=== PATIENT | male | born 1985 | race African-American/Black ===

== ENCOUNTER 2020-02-09 02:24 | Emergency (ER) | payer MEDICAID ==
[2020-02-09] MEDS ORDERED: Sodium Chloride 0.9% 2.5 ML Syringe FLUSH PRN (02:49)
[2020-02-09] MEDS ORDERED: Lactated Ringers 1,000 ML IV ONE (02:49)
[2020-02-09] MEDS ORDERED: Albuterol/Ipratropium 3.0-0.5 MG/3 ML Neb Soln NEB ONE (02:49)
[2020-02-09] MEDS ORDERED: Sodium Chloride 0.9% 10 ML Syringe FLUSH PRN (02:49)
--- NOTE | 2020-02-09 03:02 | EDM.PDOC ---
ED HPI GENERAL MEDICAL PROBLEM - General Chief Complaint: Respiratory Problem Stated Complaint: SHORTNESS OF BREATH Time Seen by Provider: 02/09/20 02:52 Source of Information: Reports: Patient History Limitations: Reports: No Limitations - History of Present Illness INITIAL COMMENTS - FREE TEXT/NARRATIVE: 34-year-old male presents with worsening dyspnea over the past 5 months. He admits to dyspnea on exertion, intermittent vomiting with left upper quadrant pain that waxes and wanes over the past 5 months. He denies fever, chills, chest pain. He is not anuric. He admits to snorting lines of cocaine 4 days ago. ROS: A 10-point review of systems, other than pertinent positives and negatives as stated per HPI, is otherwise negative Past medical history: No additional pertinent history Past Surgical history: No additional pertinent history Social history: No additional pertinent history Family history: No additional pertinent history PHYSICAL EXAM General: AOx4, GCS = 15, mild distress, BMI 35 HEENT: dry mucous membrane Neck: supple, no meningismus, no Kernig or Brudzinski Cardiac: S1S2 tachycardia Respiratory: CTAB, no crackles or rales, no wheezing, mild respiratory distress Abdomen: Soft, nontender, no rebound or guarding, nondistended, no pulsatile mass. Back: nontender Musculoskeletal: NVI distally, no deformity Neuro: No focal deficits Abdomen Pain Score (Numeric/FACES): 6 - Related Data Allergies Allergy/AdvReac Type Severity Reaction Status Date / Time No Known Allergies Allergy Verified 02/09/20 02:42 Home Meds: Home Meds . [No Known Home Meds] 02/09/20 [History] Past Medical History - Past Health History Medical/Surgical History: Denies Medical/Surgical History - Infectious Disease History Infectious Disease History: Reports: None Social & Family History - Family History Family Medical History: No Pertinent Family History - Tobacco Use Tobacco Use Status *Q: Never Tobacco User - Caffeine Use Caffeine Use: Reports: None - Recreational Drug Use Recreational Drug Use: Yes Drug Use in Last 12 Months: Yes Recreational Drug Type: Reports: Marijuana/Hashish Recreational Drug Use Frequency: Weekly ED ROS GENERAL - Review of Systems Review Of Systems: See Below (see dictation) ED EXAM, GENERAL - Physical Exam Exam: See Below (see dictation) #1 Interpretation EKG Interpretation Comments: Heart rate = 106 bpm, sinus tachycardia, normal QRS interval, LVH, no STEMI. EKG and rhythm strip interpreted by me at 0258 Course - Vital Signs Last Recorded V/S: Last Vital Signs Temp 96.3 F L 02/09/20 02:42 Pulse 102 H 02/09/20 06:15 Resp 19 02/09/20 06:15 BP 192/138 H 02/09/20 06:15 Pulse Ox 98 02/09/20 06:15 - Orders/Labs/Meds Orders: Active Orders 24 hr Category Date Time Status PROCALCITONIN [REF] Stat Lab 02/09/20 02:55 Received Nitroglycerin [Nitrostat] Med 02/09/20 05:59 Active 0.4 mg SL Q5M PRN Nitroglycerin/D5W [Nitroglycerin 25 MG/D5W 250 ML] Med 02/09/20 05:45 Active 25 mg in 250 ml IV TITRATE Isolation [COMM] Stat Oth 02/09/20 02:51 Active Saline Lock Insert [OM.PC] Stat Oth 02/09/20 02:49 Ordered Medication Orders Nitroglycerin/Dextrose (Nitroglycerin 25 Mg/D5w 250 Ml) 25 mg in 250 mls @ 6 mls/hr IV TITRATE JACKIE; Protocol Last Admin: 02/09/20 06:07 Dose: 10 mcg/min, 6 mls/hr Documented by: KEN Nitroglycerin (Nitrostat) 0.4 mg SL Q5M PRN PRN Reason: Chest Pain Last Admin: 02/09/20 06:03 Dose: 0.4 mg Documented by: Admin: 02/09/20 06:02 Dose: 0.4 mg Documented by: KEN Labs: Laboratory Tests 02/09/20 02/09/20 02/09/20 Range/Units 02:55 02:55 02:55 WBC 13.19 H (4.0-11.0) K/uL RBC 4.58 (4.50-5.90) M/uL Hgb 13.6 (13.0-17.0) g/dL Hct 39.8 (38.0-50.0) % MCV 86.9 (80.0-98.0) fL MCH 29.7 (27.0-32.0) pg MCHC 34.2 (31.0-37.0) g/dL RDW Std Deviation 39.8 (28.0-62.0) fl RDW Coeff of Neema 13 (11.0-15.0) % Plt Count 355 (150-400) K/uL MPV 10.30 (7.40-12.00) fL Neut % (Auto) 67.6 (48.0-80.0) % Lymph % (Auto) 22.1 (16.0-40.0) % Quay % (Auto) 8.7 (0.0-15.0) % Eos % (Auto) 1.3 (0.0-7.0) % Baso % (Auto) 0.3 (0.0-1.5) % Neut # (Auto) 8.9 H (1.4-5.7) K/uL Lymph # (Auto) 2.9 H (0.6-2.4) K/uL Quay # (Auto) 1.2 H (0.0-0.8) K/uL Eos # (Auto) 0.2 (0.0-0.7) K/uL Baso # (Auto) 0.0 (0.0-0.1) K/uL Nucleated RBC % 0.0 /100WBC Nucleated RBCs # 0 K/uL INR APTT (18.6-31.3) SEC D-Dimer, Quantitative 1.00 H (0.0-0.50) mg/L FEU Lactate 1.0 (0.20-2.00) mmol/L Sodium (136-148) mmol/L Potassium (3.5-5.1) mmol/L Chloride (98-107) mmol/L Carbon Dioxide (21.0-32.0) mmol/L BUN (7.0-18.0) mg/dL Creatinine (0.8-1.3) mg/dL Est Cr Clr Drug Dosing mL/min Estimated GFR (MDRD) ml/min Glucose (74-106) mg/dL Calcium (8.5-10.1) mg/dL Magnesium (1.8-2.4) mg/dL Ferritin (26-388) ng/mL Total Bilirubin (0.2-1.0) mg/dL AST (15-37) IU/L ALT (14-63) IU/L Alkaline Phosphatase (46-116) U/L Lactate Dehydrogenase (81-234) U/L Troponin I (0.000-0.056) ng/mL C-Reactive Protein (0.00-0.90) mg/dL B-Natriuretic Peptide (<100) PG/ML Total Protein (6.4-8.2) g/dL Albumin (3.4-5.0) g/dL Globulin (2.6-4.0) g/dL Albumin/Globulin Ratio (0.9-1.6) Lipase (73-393) U/L Urine Color Urine Appearance Urine pH (5.0-8.0) Ur Specific [place] (1.001-1.035) Urine Protein (NEGATIVE) mg/dL Urine Glucose (UA) (NEGATIVE) mg/dL Urine Ketones (NEGATIVE) mg/dL Urine Occult Blood (NEGATIVE) Urine Nitrite (NEGATIVE) Urine Bilirubin (NEGATIVE) Urine Urobilinogen (<2.0) EU/dL Ur Leukocyte Esterase (NEGATIVE) Urine RBC (0-2/HPF) Urine WBC (0-5/HPF) Ur Epithelial Cells (NONE-FEW) Urine Bacteria (NEGATIVE) Urine Opiates Screen (NEGATIVE) Ur Oxycodone Screen (NEGATIVE) Urine Methadone Screen (NEGATIVE) Ur Barbiturates Screen (NEGATIVE) Ur Phencyclidine Scrn (NEGATIVE) Ur Amphetamine Screen (NEGATIVE) U Methamphetamines Scrn (NEGATIVE) U Benzodiazepines Scrn (NEGATIVE) U Cocaine Metab Screen (NEGATIVE) U Marijuana (THC) Screen (NEGATIVE) SARS-CoV-2 RNA (BEENA) (NEGATIVE) 02/09/20 02/09/20 02/09/20 Range/Units 02:55 02:55 02:55 WBC (4.0-11.0) K/uL RBC (4.50-5.90) M/uL Hgb (13.0-17.0) g/dL Hct (38.0-50.0) % MCV (80.0-98.0) fL MCH (27.0-32.0) pg MCHC (31.0-37.0) g/dL RDW Std Deviation (28.0-62.0) fl RDW Coeff of Neema (11.0-15.0) % Plt Count (150-400) K/uL MPV (7.40-12.00) fL Neut % (Auto) (48.0-80.0) % Lymph % (Auto) (16.0-40.0) % Quay % (Auto) (0.0-15.0) % Eos % (Auto) (0.0-7.0) % Baso % (Auto) (0.0-1.5) % Neut # (Auto) (1.4-5.7) K/uL Lymph # (Auto) (0.6-2.4) K/uL Quay # (Auto) (0.0-0.8) K/uL Eos # (Auto) (0.0-0.7) K/uL Baso # (Auto) (0.0-0.1) K/uL Nucleated RBC % /100WBC Nucleated RBCs # K/uL INR 1.05 APTT (18.6-31.3) SEC D-Dimer, Quantitative (0.0-0.50) mg/L FEU Lactate (0.20-2.00) mmol/L Sodium 135 L (136-148) mmol/L Potassium 3.0 L (3.5-5.1) mmol/L Chloride 94 L (98-107) mmol/L Carbon Dioxide 28.1 (21.0-32.0) mmol/L BUN 33 H (7.0-18.0) mg/dL Creatinine 4.5 H (0.8-1.3) mg/dL Est Cr Clr Drug Dosing 23.66 mL/min Estimated GFR (MDRD) 18.2 ml/min Glucose 133 H (74-106) mg/dL Calcium 9.2 (8.5-10.1) mg/dL Magnesium 2.2 (1.8-2.4) mg/dL Ferritin (26-388) ng/mL Total Bilirubin 0.6 (0.2-1.0) mg/dL AST 61 H (15-37) IU/L ALT 90 H (14-63) IU/L Alkaline Phosphatase 84 (46-116) U/L Lactate Dehydrogenase 352 H (81-234) U/L Troponin I 0.116 H* (0.000-0.056) ng/mL C-Reactive Protein 2.40 H (0.00-0.90) mg/dL B-Natriuretic Peptide 2701 H (<100) PG/ML Total Protein 7.6 (6.4-8.2) g/dL Albumin 3.4 (3.4-5.0) g/dL Globulin 4.2 H (2.6-4.0) g/dL Albumin/Globulin Ratio 0.8 L (0.9-1.6) Lipase (73-393) U/L Urine Color Urine Appearance Urine pH (5.0-8.0) Ur Specific [place] (1.001-1.035) Urine Protein (NEGATIVE) mg/dL Urine Glucose (UA) (NEGATIVE) mg/dL Urine Ketones (NEGATIVE) mg/dL Urine Occult Blood (NEGATIVE) Urine Nitrite (NEGATIVE) Urine Bilirubin (NEGATIVE) Urine Urobilinogen (<2.0) EU/dL Ur Leukocyte Esterase (NEGATIVE) Urine RBC (0-2/HPF) Urine WBC (0-5/HPF) Ur Epithelial Cells (NONE-FEW) Urine Bacteria (NEGATIVE) Urine Opiates Screen (NEGATIVE) Ur Oxycodone Screen (NEGATIVE) Urine Methadone Screen (NEGATIVE) Ur Barbiturates Screen (NEGATIVE) Ur Phencyclidine Scrn (NEGATIVE) Ur Amphetamine Screen (NEGATIVE) U Methamphetamines Scrn (NEGATIVE) U Benzodiazepines Scrn (NEGATIVE) U Cocaine Metab Screen (NEGATIVE) U Marijuana (THC) Screen (NEGATIVE) SARS-CoV-2 RNA (BEENA) (NEGATIVE) 02/09/20 02/09/20 02/09/20 Range/Units 02:55 02:55 02:55 WBC (4.0-11.0) K/uL RBC (4.50-5.90) M/uL Hgb (13.0-17.0) g/dL Hct (38.0-50.0) % MCV (80.0-98.0) fL MCH (27.0-32.0) pg MCHC (31.0-37.0) g/dL RDW Std Deviation (28.0-62.0) fl RDW Coeff of Neema (11.0-15.0) % Plt Count (150-400) K/uL MPV (7.40-12.00) fL Neut % (Auto) (48.0-80.0) % Lymph % (Auto) (16.0-40.0) % Quay % (Auto) (0.0-15.0) % Eos % (Auto) (0.0-7.0) % Baso % (Auto) (0.0-1.5) % Neut # (Auto) (1.4-5.7) K/uL Lymph # (Auto) (0.6-2.4) K/uL Quay # (Auto) (0.0-0.8) K/uL Eos # (Auto) (0.0-0.7) K/uL Baso # (Auto) (0.0-0.1) K/uL Nucleated RBC % /100WBC Nucleated RBCs # K/uL INR APTT 29.6 (18.6-31.3) SEC D-Dimer, Quantitative (0.0-0.50) mg/L FEU Lactate (0.20-2.00) mmol/L Sodium (136-148) mmol/L Potassium (3.5-5.1) mmol/L Chloride (98-107) mmol/L Carbon Dioxide (21.0-32.0) mmol/L BUN (7.0-18.0) mg/dL Creatinine (0.8-1.3) mg/dL Est Cr Clr Drug Dosing mL/min Estimated GFR (MDRD) ml/min Glucose (74-106) mg/dL Calcium (8.5-10.1) mg/dL Magnesium (1.8-2.4) mg/dL Ferritin 555 H (26-388) ng/mL Total Bilirubin (0.2-1.0) mg/dL AST (15-37) IU/L ALT (14-63) IU/L Alkaline Phosphatase (46-116) U/L Lactate Dehydrogenase (81-234) U/L Troponin I (0.000-0.056) ng/mL C-Reactive Protein (0.00-0.90) mg/dL B-Natriuretic Peptide (<100) PG/ML Total Protein (6.4-8.2) g/dL Albumin (3.4-5.0) g/dL Globulin (2.6-4.0) g/dL Albumin/Globulin Ratio (0.9-1.6) Lipase 114 (73-393) U/L Urine Color Urine Appearance Urine pH (5.0-8.0) Ur Specific [place] (1.001-1.035) Urine Protein (NEGATIVE) mg/dL Urine Glucose (UA) (NEGATIVE) mg/dL Urine Ketones (NEGATIVE) mg/dL Urine Occult Blood (NEGATIVE) Urine Nitrite (NEGATIVE) Urine Bilirubin (NEGATIVE) Urine Urobilinogen (<2.0) EU/dL Ur Leukocyte Esterase (NEGATIVE) Urine RBC (0-2/HPF) Urine WBC (0-5/HPF) Ur Epithelial Cells (NONE-FEW) Urine Bacteria (NEGATIVE) Urine Opiates Screen (NEGATIVE) Ur Oxycodone Screen (NEGATIVE) Urine Methadone Screen (NEGATIVE) Ur Barbiturates Screen (NEGATIVE) Ur Phencyclidine Scrn (NEGATIVE) Ur Amphetamine Screen (NEGATIVE) U Methamphetamines Scrn (NEGATIVE) U Benzodiazepines Scrn (NEGATIVE) U Cocaine Metab Screen (NEGATIVE) U Marijuana (THC) Screen (NEGATIVE) SARS-CoV-2 RNA (BEENA) (NEGATIVE) 02/09/20 02/09/20 02/09/20 Range/Units 03:17 03:34 03:34 WBC (4.0-11.0) K/uL RBC (4.50-5.90) M/uL Hgb (13.0-17.0) g/dL Hct (38.0-50.0) % MCV (80.0-98.0) fL MCH (27.0-32.0) pg MCHC (31.0-37.0) g/dL RDW Std Deviation (28.0-62.0) fl RDW Coeff of Neema (11.0-15.0) % Plt Count (150-400) K/uL MPV (7.40-12.00) fL Neut % (Auto) (48.0-80.0) % Lymph % (Auto) (16.0-40.0) % Quay % (Auto) (0.0-15.0) % Eos % (Auto) (0.0-7.0) % Baso % (Auto) (0.0-1.5) % Neut # (Auto) (1.4-5.7) K/uL Lymph # (Auto) (0.6-2.4) K/uL [place] # (Auto) (0.0-0.8) K/uL Eos # (Auto) (0.0-0.7) K/uL Baso # (Auto) (0.0-0.1) K/uL Nucleated RBC % /100WBC Nucleated RBCs # K/uL INR APTT (18.6-31.3) SEC D-Dimer, Quantitative (0.0-0.50) mg/L FEU Lactate (0.20-2.00) mmol/L Sodium (136-148) mmol/L Potassium (3.5-5.1) mmol/L Chloride (98-107) mmol/L Carbon Dioxide (21.0-32.0) mmol/L BUN (7.0-18.0) mg/dL Creatinine (0.8-1.3) mg/dL Est Cr Clr Drug Dosing mL/min Estimated GFR (MDRD) ml/min Glucose (74-106) mg/dL Calcium (8.5-10.1) mg/dL Magnesium (1.8-2.4) mg/dL Ferritin (26-388) ng/mL Total Bilirubin (0.2-1.0) mg/dL AST (15-37) IU/L ALT (14-63) IU/L Alkaline Phosphatase (46-116) U/L Lactate Dehydrogenase (81-234) U/L Troponin I (0.000-0.056) ng/mL C-Reactive Protein (0.00-0.90) mg/dL B-Natriuretic Peptide (<100) PG/ML Total Protein (6.4-8.2) g/dL Albumin (3.4-5.0) g/dL Globulin (2.6-4.0) g/dL Albumin/Globulin Ratio (0.9-1.6) Lipase (73-393) U/L Urine Color YELLOW Urine Appearance CLEAR Urine pH 6.5 (5.0-8.0) Ur Specific [place] 1.010 (1.001-1.035) Urine Protein 100 H (NEGATIVE) mg/dL Urine Glucose (UA) NEGATIVE (NEGATIVE) mg/dL Urine Ketones NEGATIVE (NEGATIVE) mg/dL Urine Occult Blood TRACE-INTACT H (NEGATIVE) Urine Nitrite POSITIVE H (NEGATIVE) Urine Bilirubin NEGATIVE (NEGATIVE) Urine Urobilinogen 0.2 (<2.0) EU/dL Ur Leukocyte Esterase NEGATIVE (NEGATIVE) Urine RBC 0-2 (0-2/HPF) Urine WBC 0-2 (0-5/HPF) Ur Epithelial Cells RARE (NONE-FEW) Urine Bacteria RARE (NEGATIVE) Urine Opiates Screen NEGATIVE (NEGATIVE) Ur Oxycodone Screen NEGATIVE (NEGATIVE) Urine Methadone Screen NEGATIVE (NEGATIVE) Ur Barbiturates Screen NEGATIVE (NEGATIVE) Ur Phencyclidine Scrn NEGATIVE (NEGATIVE) Ur Amphetamine Screen NEGATIVE (NEGATIVE) U Methamphetamines Scrn NEGATIVE (NEGATIVE) U Benzodiazepines Scrn NEGATIVE (NEGATIVE) U Cocaine Metab Screen POSITIVE (NEGATIVE) U Marijuana (THC) Screen POSITIVE (NEGATIVE) SARS-CoV-2 RNA (BEENA) NEGATIVE (NEGATIVE) Meds: Medications Generic Name Dose Route Start Last Admin Trade Name Freq PRN Reason Stop Dose Admin Nitroglycerin/Dextrose 25 mg in 250 mls @ 6 mls/hr 02/09/20 05:45 02/09/20 06:07 Nitroglycerin 25 Mg/D5w 250 Ml IV 10 mcg/min TITRATE JACKIE 6 mls/hr Administration Protocol 10 MCG/MIN Nitroglycerin 0.4 mg 02/09/20 05:59 02/09/20 06:03 Nitrostat SL 0.4 mg Q5M PRN Administration Chest Pain Discontinued Medications Generic Name Dose Route Start Last Admin Trade Name Freq PRN Reason Stop Dose Admin Albuterol/Ipratropium 3 ml 02/09/20 02:49 02/09/20 03:07 Duoneb 3.0-0.5 Mg/3 Ml NEB 02/09/20 02:50 3 ml ONETIME ONE Administration Aspirin 324 mg 02/09/20 03:56 02/09/20 03:59 Aspirin PO 02/09/20 03:57 324 mg ONETIME ONE Administration Heparin Sodium (Porcine) 4,000 units 02/09/20 03:44 02/09/20 04:00 Heparin Sodium IVPUSH 02/09/20 03:45 4,000 units .BOLUS ONE Administration Protocol Lactated Ringer's 1,000 mls @ 999 mls/hr 02/09/20 02:49 02/09/20 03:07 Ringers, Lactated IV 02/09/20 03:49 999 mls/hr .BOLUS ONE Administration Heparin Sodium/Sodium Chloride 500 mls @ 27.216 mls/hr 02/09/20 04:00 02/09/20 04:00 Heparin 25,000 Units In 1/2 Ns 500 Ml IV 12 units/kg/hr TITRATE JACKIE 27.216 mls/hr Administration Protocol 12 UNITS/KG/HR Nitroglycerin Confirm 02/09/20 05:56 02/09/20 06:05 Nitrostat Administered 02/09/20 05:57 Not Given Dose 0.4 mg .ROUTE .STK-MED ONE Sodium Chloride 10 ml 02/09/20 02:49 02/09/20 03:08 Saline Flush FLUSH 10 ml ASDIRECTED PRN Administration Keep Vein Open Sodium Chloride 2.5 ml 02/09/20 02:49 02/09/20 03:08 Saline Flush FLUSH 2.5 ml ASDIRECTED PRN Administration Keep Vein Open - Re-Assessments/Exams Free Text/Narrative Re-Assessment/Exam: 02/09/20 03:58 Patient given aspirin 324 mg, heparin bolus and drip for NSTEMI protocal. Patient will require transfer to outside facility for the need of higher level of care not available at this facility, and the need for solutions consultant services unavailable at this facility. Any emergency conditions have been stabilized to the ability of the ED prior to the transfer. Case was discussed and accepted at [facility] by Dr. Donald Vital 02/09/20 06:00 BP upon manual check was high in 240/140s, started on NTG SL x3 and NTG drip. EMS here picking up patient now. Departure - Departure Time of Disposition: 03:59 Disposition: DC/Tfer to Acute Hospital 02 Condition: Critical Clinical Impression: NSTEMI (non-ST elevated myocardial infarction), Acute exacerbation of congestive heart failure, Acute renal failure (ARF), Hypokalemia, Dyspnea on exertion, Cocaine abuse, Hypertensive emergency - Discharge Information *PRESCRIPTION DRUG MONITORING PROGRAM REVIEWED*: Not Applicable *COPY OF PRESCRIPTION DRUG MONITORING REPORT IN PATIENT CLYDE: Not Applicable Referrals: PCP,None [Primary Care Provider] - Forms: ED Department Discharge Critical Care Note - Critical Care Note Total Time (mins): 78 Comments: CRITCAL CARE: The high probability of sudden, clinically significant deterioration in the patient's condition required the highest level of my preparedness to intervene urgently. The services I provided to this patient were to treat and/or prevent clinically significant deterioration. Services included the following: chart data review, reviewing nursing notes and/or old charts, documentation time, solutions consultant collaboration regarding findings and treatment options, medication orders and management, direct patient care, vital sign assessments and ordering, interpreting and reviewing diagnostic studies/lab tests. Aggregate critical care time includes only time during which I was engaged in work directly related to the patient's care, as described above, whether at the bedside or elsewhere in the Emergency Department. It did not include time spent performing other reported procedures or the services of residents, students, nurses or physician assistants. Frequent interventions and/or frequent repeat evaluations were required as well as counseling and coordination of care regarding prognosis, treatments, and discussions with patient, staff and consultants. Critical Care (excluding other procedures): 78 minutes Sepsis Event Note (ED) - Evaluation Sepsis Screening Result: No Definite Risk - Focused Exam Vital Signs: Vital Signs Temp Pulse Resp BP BP Pulse Ox 02/09/20 06:15 102 H 19 192/138 H 98 02/09/20 06:03 214/152 H 02/09/20 06:02 216/148 H 02/09/20 05:54 97 19 215/150 H 97 02/09/20 05:33 230/160 H 02/09/20 04:05 109 H 20 145/119 H 96 02/09/20 02:42 96.3 F L 110 H 18 132/82 96 - My Orders Last 24 Hours: My Active Orders 02/09/20 02:49 Saline Lock Insert [OM.PC] Stat 02/09/20 02:51 Isolation [COMM] Stat 02/09/20 02:55 PROCALCITONIN [REF] Stat 02/09/20 05:45 Nitroglycerin/D5W [Nitroglycerin 25 MG/D5W 250 ML] 25 mg in 250 ml IV TITRATE 02/09/20 05:59 Nitroglycerin [Nitrostat] 0.4 mg SL Q5M PRN - Assessment/Plan Last 24 Hours: My Active Orders 02/09/20 02:49 Saline Lock Insert [OM.PC] Stat 02/09/20 02:51 Isolation [COMM] Stat 02/09/20 02:55 PROCALCITONIN [REF] Stat 02/09/20 05:45 Nitroglycerin/D5W [Nitroglycerin 25 MG/D5W 250 ML] 25 mg in 250 ml IV TITRATE 02/09/20 05:59 Nitroglycerin [Nitrostat] 0.4 mg SL Q5M PRN
[2020-02-09 03:36] LABS: CARBON DIOXIDE,CO2 28.1 mmol/L (21.0-32.0)
[2020-02-09] MEDS ORDERED: Heparin Sodium 5,000 Units/ML Vial IVPUSH ONE (03:44)
[2020-02-09] MEDS ORDERED: Heparin Sodium/0.45% NaCl 500 ML IV SCH ×2 (03:45→04:00)
[2020-02-09] MEDS ORDERED: Aspirin 81 MG Tab.Chew PO ONE (03:56)
--- NOTE | 2020-02-09 03:58 | CR ---
Indication: Dyspnea. Muscle aches Technique: Chest 1 view Comparison: None Findings/Impression: Cardiovascular and mediastinum: Borderline cardiomegaly, partially related to the portable technique. Lungs and pleural space: Increased central interstitial markings. Correlate for an active infectious/inflammatory interstitial process, bronchitis, or evolving interstitial edema. No pleural effusions. No pneumothorax seen. Bones and soft tissues: No significant findings. Dictated by Balta Houston MD @ Feb 09 2020 3:55AM Signed by Dr. Balta Houston @ Feb 09 2020 3:57AM
[2020-02-09] MEDS ORDERED: Nitroglycerin/D5W 25 MG/250 ML BOTTLE IV SCH (05:45)
[2020-02-09] MEDS ORDERED: Nitroglycerin 0.4 MG Tab.SL ONE (05:56)
[2020-02-09] MEDS: Nitroglycerin 0.4 MG Tab.SL SL PRN ×2 (06:02→06:03)
== END 2020-02-09 06:30 ==
LOC: MW.ED 02:24
DX: I21.4 Non-ST elevation (NSTEMI) myocardial infarction (principal); I50.9 Heart failure, unspecified; N17.9 Acute kidney failure, unspecified; E87.6 Hypokalemia; F14.10 Cocaine abuse, uncomplicated; I16.1 Hypertensive emergency; Z20.828 Contact with and (suspected) exposure to other viral communicable diseases
CPT/HCPCS: 36415; 71045; 80053; 80305; 81001; 82728; 83605; 83615; 83690; 83735; 83880; 84145; 84484; 85025; 85379; 85610; 85730; 86140; 87635; 93005; 96365; 96366; 99291; A9270; J1644; J3490; J7120; 99292; J7620-GY; U0002

== ENCOUNTER 2020-06-03 08:05 | Emergency (ER) | payer SELFPAY ==
--- NOTE | 2020-06-03 08:10 | EDM.PDOC ---
ED HPI GENERAL MEDICAL PROBLEM - General Chief Complaint: General Stated Complaint: SHORT OF BREATHE Time Seen by Provider: 06/03/20 08:07 Source of Information: Reports: Patient History Limitations: Reports: No Limitations - History of Present Illness INITIAL COMMENTS - FREE TEXT/NARRATIVE: 35-year-old male past medical history hypertension, NSTEMI, remote history of cocaine abuse, states no drug abuse aside from marijuana in the last month presents for high blood pressure, cough, lower back pain. Patient notes that he was here in January 2020 and diagnosed with NSTEMI and congestive heart failure. He was transferred to an outside institution for further work-up. He denies having any stents in his heart. He does note that he has been out of his medications for the last month. He states he is supposed to be on a blood thinner and labetalol. He notes that he feels like his blood pressure is high, he is noted bilateral lower back pain for the last 3 to 4 days, and a persistent cough. His cough is not new but for the last couple of days he has noted streaks of bright red blood in his cough. He notes that he is taking an unknown blood thinner that he got from a friend for the last 3 days. He denies decreased urination or dark urine. He is still making urine. He denies lower extremity swelling or pain. He states that his presentation today is similar to when he came to the hospital in January but "if things were a 6 out of 10 then they are about a 2 out of 10 today". Patient denies headache and chest pain. Bilateral flank Pain Score (Numeric/FACES): 2 - Related Data Allergies Allergy/AdvReac Type Severity Reaction Status Date / Time No Known Allergies Allergy Verified 06/03/20 08:26 Home Meds: Home Meds . [No Known Home Meds] 02/09/20 [History] Past Medical History - Past Health History Medical/Surgical History: Denies Medical/Surgical History - Infectious Disease History Infectious Disease History: Reports: None Social & Family History - Family History Family Medical History: No Pertinent Family History - Caffeine Use Caffeine Use: Reports: None ED ROS GENERAL - Review of Systems Review Of Systems: Comprehensive ROS is negative, except as noted in HPI. ED EXAM, GENERAL - Physical Exam Exam: See Below Exam Limited By: No Limitations General Appearance: Alert, WD/WN, No Apparent Distress Throat/Mouth: Normal Voice, No Airway Compromise Head: Atraumatic, Normocephalic Neck: Normal Inspection Respiratory/Chest: No Respiratory Distress, No Accessory Muscle Use, Wheezing Cardiovascular: Normal Peripheral Pulses, No Edema, Tachycardia GI/Abdominal: Soft, Non-Tender Back Exam: No: CVA Tenderness (L), CVA Tenderness (R) Extremities: Normal Inspection Neurological: Alert, Normal Cognition, Normal Gait Psychiatric: Normal Affect, Normal Mood Skin Exam: Warm, Dry, Intact, Normal Color #1 Interpretation EKG Date: 06/03/20 Time: 08:26 Rhythm: NSR Rate (Beats/Min): 105 [place]: Normal P-Wave: Present QRS: Normal ST-T: Other (1mm YUN leads V2, V3 consistent with benign early repol largely unchanged from prior, LVH) QT: Normal DE/PQ Interval: 149 Comparison: No Change EKG Interpretation Comments: Virtually unchanged from prior EKG, no STEMI Course - Vital Signs Last Recorded V/S: Last Vital Signs Temp 97.0 F 06/03/20 08:33 Pulse 87 06/03/20 08:58 Resp 17 06/03/20 08:58 BP 207/147 H 06/03/20 08:58 Pulse Ox 97 06/03/20 08:58 - Orders/Labs/Meds Orders: Active Orders 24 hr Category Date Time Status Cardiac Monitoring [RC] . DIRECTED Care 06/03/20 08:37 Active EKG Documentation Completion [RC] STAT Care 06/03/20 08:36 Active Pulse Oximetry [RC] ASDIRECTED Care 06/03/20 08:37 Active PTT,PARTIAL THROMBOPLSTIN TIME [COAG] Q6H Lab 06/03/20 09:45 Ordered PTT,PARTIAL THROMBOPLSTIN TIME [COAG] Q6H Lab 06/03/20 15:45 Ordered PTT,PARTIAL THROMBOPLSTIN TIME [COAG] Q6H Lab 06/03/20 21:45 Ordered PTT,PARTIAL THROMBOPLSTIN TIME [COAG] Q6H Lab 06/04/20 03:45 Ordered PTT,PARTIAL THROMBOPLSTIN TIME [COAG] Q6H Lab 06/04/20 09:45 Ordered PTT,PARTIAL THROMBOPLSTIN TIME [COAG] Q6H Lab 06/04/20 15:45 Ordered PTT,PARTIAL THROMBOPLSTIN TIME [COAG] Q6H Lab 06/04/20 21:45 Ordered PTT,PARTIAL THROMBOPLSTIN TIME [COAG] Stat Lab 06/03/20 09:38 Ordered Heparin Sodium/0.45% NaCl [Heparin 25,000 Units in 1/2 Med 06/03/20 09:45 Active NS 500 ML] 500 ml IV TITRATE Nitroglycerin/D5W [Nitroglycerin 25 MG/D5W 250 ML] Med 06/03/20 09:45 Active 25 mg in 250 ml IV TITRATE Sodium Chloride 0.9% [Saline Flush] Med 06/03/20 08:36 Active 10 ml FLUSH ASDIRECTED PRN Sodium Chloride 0.9% [Saline Flush] Med 06/03/20 08:36 Active 2.5 ml FLUSH ASDIRECTED PRN Saline Lock Insert [OM.PC] Stat Oth 06/03/20 08:37 Ordered Medication Orders Nitroglycerin/Dextrose (Nitroglycerin 25 Mg/D5w 250 Ml) 25 mg in 250 mls @ 15 mls/hr IV TITRATE JACKIE; Protocol Last Admin: 06/03/20 09:50 Dose: 25 mcg/min, 15 mls/hr Documented by: Heparin Sodium/Sodium Chloride (Heparin 25,000 Units In 1/2 Ns 500 Ml) 500 mls @ 27.216 mls/hr IV TITRATE JACKIE; Protocol Last Admin: 06/03/20 09:49 Dose: 12 units/kg/hr, 27.216 mls/hr Documented by: Sodium Chloride (Sodium Chloride 0.9% 10 Ml Syringe) 10 ml FLUSH ASDIRECTED PRN PRN Reason: Keep Vein Open Last Admin: 06/03/20 08:50 Dose: 10 ml Documented by: DARRIAN Sodium Chloride (Sodium Chloride 0.9% 2.5 Ml Syringe) 2.5 ml FLUSH ASDIRECTED PRN PRN Reason: Keep Vein Open Last Admin: 06/03/20 08:50 Dose: 2.5 ml Documented by: DARRIAN Labs: Laboratory Tests 06/03/20 06/03/20 06/03/20 Range/Units 08:24 08:24 08:24 WBC 15.33 H (4.0-11.0) K/uL RBC 5.10 (4.50-5.90) M/uL Hgb 15.3 (13.0-17.0) g/dL Hct 44.0 (38.0-50.0) % MCV 86.3 (80.0-98.0) fL MCH 30.0 (27.0-32.0) pg MCHC 34.8 (31.0-37.0) g/dL RDW Std Deviation 40.5 (28.0-62.0) fl RDW Coeff of Neema 13 (11.0-15.0) % Plt Count 360 (150-400) K/uL MPV 10.70 (7.40-12.00) fL Neut % (Auto) 79.6 (48.0-80.0) % Lymph % (Auto) 12.7 L (16.0-40.0) % [place] % (Auto) 7.0 (0.0-15.0) % Eos % (Auto) 0.5 (0.0-7.0) % Baso % (Auto) 0.2 (0.0-1.5) % Neut # (Auto) 12.2 H (1.4-5.7) K/uL Lymph # (Auto) 2.0 (0.6-2.4) K/uL [place] # (Auto) 1.1 H (0.0-0.8) K/uL Eos # (Auto) 0.1 (0.0-0.7) K/uL Baso # (Auto) 0.0 (0.0-0.1) K/uL Nucleated RBC % 0.0 /100WBC Nucleated RBCs # 0 K/uL INR APTT (18.6-31.3) SEC D-Dimer, Quantitative (0.0-0.50) mg/L FEU Sodium 131 L (136-148) mmol/L Potassium 3.3 L (3.5-5.1) mmol/L Chloride 92 L (98-107) mmol/L Carbon Dioxide 28.8 (21.0-32.0) mmol/L BUN 36 H (7.0-18.0) mg/dL Creatinine 4.1 H (0.8-1.3) mg/dL Est Cr Clr Drug Dosing 26.53 mL/min Estimated GFR (MDRD) 20.1 ml/min Glucose 127 H (74-106) mg/dL Calcium 9.1 (8.5-10.1) mg/dL Magnesium 2.1 (1.8-2.4) mg/dL Total Bilirubin 0.8 (0.2-1.0) mg/dL AST 30 (15-37) IU/L ALT 27 (14-63) IU/L Alkaline Phosphatase 73 (46-116) U/L Troponin I 0.144 H* (0.000-0.056) ng/mL B-Natriuretic Peptide 2283 H (<100) PG/ML Total Protein 8.4 H (6.4-8.2) g/dL Albumin 3.5 (3.4-5.0) g/dL Globulin 4.9 H (2.6-4.0) g/dL Albumin/Globulin Ratio 0.7 L (0.9-1.6) Urine Color Urine Appearance Urine pH (5.0-8.0) Ur Specific [place] (1.001-1.035) Urine Protein (NEGATIVE) mg/dL Urine Glucose (UA) (NEGATIVE) mg/dL Urine Ketones (NEGATIVE) mg/dL Urine Occult Blood (NEGATIVE) Urine Nitrite (NEGATIVE) Urine Bilirubin (NEGATIVE) Urine Urobilinogen (<2.0) EU/dL Ur Leukocyte Esterase (NEGATIVE) Urine RBC (0-2/HPF) Urine WBC (0-5/HPF) Ur Epithelial Cells (NONE-FEW) Urine Bacteria (NEGATIVE) Urine Opiates Screen (NEGATIVE) Ur Oxycodone Screen (NEGATIVE) Urine Methadone Screen (NEGATIVE) Ur Barbiturates Screen (NEGATIVE) Ur Phencyclidine Scrn (NEGATIVE) Ur Amphetamine Screen (NEGATIVE) U Methamphetamines Scrn (NEGATIVE) U Benzodiazepines Scrn (NEGATIVE) U Cocaine Metab Screen (NEGATIVE) U Marijuana (THC) Screen (NEGATIVE) 06/03/20 06/03/20 06/03/20 Range/Units 08:24 09:16 09:16 WBC (4.0-11.0) K/uL RBC (4.50-5.90) M/uL Hgb (13.0-17.0) g/dL Hct (38.0-50.0) % MCV (80.0-98.0) fL MCH (27.0-32.0) pg MCHC (31.0-37.0) g/dL RDW Std Deviation (28.0-62.0) fl RDW Coeff of Neema (11.0-15.0) % Plt Count (150-400) K/uL MPV (7.40-12.00) fL Neut % (Auto) (48.0-80.0) % Lymph % (Auto) (16.0-40.0) % [place] % (Auto) (0.0-15.0) % Eos % (Auto) (0.0-7.0) % Baso % (Auto) (0.0-1.5) % Neut # (Auto) (1.4-5.7) K/uL Lymph # (Auto) (0.6-2.4) K/uL [place] # (Auto) (0.0-0.8) K/uL Eos # (Auto) (0.0-0.7) K/uL Baso # (Auto) (0.0-0.1) K/uL Nucleated RBC % /100WBC Nucleated RBCs # K/uL INR 1.05 APTT 35.0 H (18.6-31.3) SEC D-Dimer, Quantitative 0.60 H (0.0-0.50) mg/L FEU Sodium (136-148) mmol/L Potassium (3.5-5.1) mmol/L Chloride (98-107) mmol/L Carbon Dioxide (21.0-32.0) mmol/L BUN (7.0-18.0) mg/dL Creatinine (0.8-1.3) mg/dL Est Cr Clr Drug Dosing mL/min Estimated GFR (MDRD) ml/min Glucose (74-106) mg/dL Calcium (8.5-10.1) mg/dL Magnesium (1.8-2.4) mg/dL Total Bilirubin (0.2-1.0) mg/dL AST (15-37) IU/L ALT (14-63) IU/L Alkaline Phosphatase (46-116) U/L Troponin I (0.000-0.056) ng/mL B-Natriuretic Peptide (<100) PG/ML Total Protein (6.4-8.2) g/dL Albumin (3.4-5.0) g/dL Globulin (2.6-4.0) g/dL Albumin/Globulin Ratio (0.9-1.6) Urine Color YELLOW Urine Appearance CLEAR Urine pH 7.0 (5.0-8.0) Ur Specific [place] 1.020 (1.001-1.035) Urine Protein >=300 H (NEGATIVE) mg/dL Urine Glucose (UA) 100 H (NEGATIVE) mg/dL Urine Ketones NEGATIVE (NEGATIVE) mg/dL Urine Occult Blood MODERATE H (NEGATIVE) Urine Nitrite NEGATIVE (NEGATIVE) Urine Bilirubin NEGATIVE (NEGATIVE) Urine Urobilinogen 0.2 (<2.0) EU/dL Ur Leukocyte Esterase NEGATIVE (NEGATIVE) Urine RBC 0-2 (0-2/HPF) Urine WBC 0-2 (0-5/HPF) Ur Epithelial Cells RARE (NONE-FEW) Urine Bacteria RARE (NEGATIVE) Urine Opiates Screen NEGATIVE (NEGATIVE) Ur Oxycodone Screen NEGATIVE (NEGATIVE) Urine Methadone Screen NEGATIVE (NEGATIVE) Ur Barbiturates Screen NEGATIVE (NEGATIVE) Ur Phencyclidine Scrn NEGATIVE (NEGATIVE) Ur Amphetamine Screen NEGATIVE (NEGATIVE) U Methamphetamines Scrn NEGATIVE (NEGATIVE) U Benzodiazepines Scrn NEGATIVE (NEGATIVE) U Cocaine Metab Screen POSITIVE (NEGATIVE) U Marijuana (THC) Screen POSITIVE (NEGATIVE) Meds: Medications Generic Name Dose Route Start Last Admin Trade Name Freq PRN Reason Stop Dose Admin Nitroglycerin/Dextrose 25 mg in 250 mls @ 15 mls/hr 06/03/20 09:45 06/03/20 09:50 Nitroglycerin 25 Mg/D5w 250 Ml IV 25 mcg/min TITRATE JACKIE 15 mls/hr Administration Protocol 25 MCG/MIN Heparin Sodium/Sodium Chloride 500 mls @ 27.216 mls/hr 06/03/20 09:45 06/03/20 09:49 Heparin 25,000 Units In 1/2 Ns 500 Ml IV 12 units/kg/hr TITRATE JACKIE 27.216 mls/hr Administration Protocol 12 UNITS/KG/HR Sodium Chloride 10 ml 06/03/20 08:36 06/03/20 08:50 Sodium Chloride 0.9% 10 Ml Syringe FLUSH 10 ml ASDIRECTED PRN Administration Keep Vein Open Sodium Chloride 2.5 ml 06/03/20 08:36 06/03/20 08:50 Sodium Chloride 0.9% 2.5 Ml Syringe FLUSH 2.5 ml ASDIRECTED PRN Administration Keep Vein Open Discontinued Medications Generic Name Dose Route Start Last Admin Trade Name Freq PRN Reason Stop Dose Admin Albuterol/Ipratropium 3 ml 06/03/20 08:36 06/03/20 08:50 Albuterol/Ipratropium 3.0-0.5 Mg/3 Ml Neb Soln NEB 06/03/20 08:37 3 ml ONETIME ONE Administration Aspirin 324 mg 06/03/20 08:36 06/03/20 08:47 Aspirin 81 Mg Tab.Chew PO 06/03/20 08:37 Not Given ONETIME ONE Aspirin 324 mg 06/03/20 09:33 06/03/20 09:47 Aspirin 81 Mg Tab.Chew PO 06/03/20 09:34 324 mg ONETIME ONE Administration Heparin Sodium (Porcine) 60 units 06/03/20 09:37 06/03/20 09:47 Heparin Sodium 5,000 Units/Ml Vial IVPUSH 06/03/20 09:38 Not Given .BOLUS ONE Heparin Sodium (Porcine) 4,000 units 06/03/20 09:41 06/03/20 09:47 Heparin Sodium 5,000 Units/Ml Vial IVPUSH 06/03/20 09:42 4,000 units ONETIME ONE Administration Heparin Sodium (Porcine) Confirm 06/03/20 09:43 06/03/20 09:49 Heparin Sodium 5,000 Units/Ml Vial Administered 06/03/20 09:44 Not Given Dose 5,000 units .ROUTE .STK-MED ONE Nitroglycerin/Dextrose Confirm 06/03/20 09:43 06/03/20 09:49 Nitroglycerin 25 Mg/D5w 250 Ml Administered 06/03/20 09:44 Not Given Dose 25 mg in 250 mls @ as directed .ROUTE .STK-MED ONE Heparin Sodium/Sodium Chloride Confirm 06/03/20 09:43 06/03/20 09:49 Heparin 25,000 Units In 1/2 Ns 500 Ml Administered 06/03/20 09:44 Not Given Dose 500 mls @ as directed .ROUTE .STK-MED ONE Labetalol HCl 20 mg 06/03/20 08:36 06/03/20 08:50 Labetalol 100 Mg/20 Ml Mdv IVPUSH 06/03/20 08:37 20 mg ONETIME ONE Administration Protocol - Re-Assessments/Exams Free Text/Narrative Re-Assessment/Exam: 06/03/20 08:43 Patient's blood pressure is markedly elevated. Will give labetalol 20 mg now. Will give DuoNeb for wheezing. Will follow up labs and disposition. 06/03/20 09:36 Patient's labs remarkable for elevated troponin, acute renal failure, elevated proBNP. His blood pressure remains 180s over 140s. Nitroglycerin drip was ordered. Aspirin is ordered. Will start heparin drip as well. Patient will need transfer to tertiary care center. 06/03/20 09:53 Patient accepted for transfer to [facility] by Dr. Mcdonald as we do not have in-patient cardiology or nephrology coverage. Patient agreeable. Departure - Departure Time of Disposition: 09:54 Disposition: Home, Self-Care 01 Condition: Good Clinical Impression: Elevated troponin Acute on chronic renal failure Qualifiers: Acute renal failure type: unspecified Chronic kidney disease stage: unspecified stage Qualified Code(s): N17.9 - Acute kidney failure, unspecified - Discharge Information Referrals: PCP,None [Primary Care Provider] - Forms: ED Department Discharge Critical Care Note - Critical Care Note Total Time (mins): 35 Sepsis Event Note (ED) - Focused Exam Vital Signs: Vital Signs Temp Pulse Resp BP Pulse Ox 06/03/20 08:58 87 17 207/147 H 97 06/03/20 08:53 87 18 236/158 H 99 06/03/20 08:33 97.0 F 103 H 17 233/178 H 98 - My Orders Last 24 Hours: My Active Orders 06/03/20 08:36 EKG Documentation Completion [RC] STAT Sodium Chloride 0.9% [Saline Flush] 10 ml FLUSH ASDIRECTED PRN Sodium Chloride 0.9% [Saline Flush] 2.5 ml FLUSH ASDIRECTED PRN 06/03/20 08:37 Cardiac Monitoring [RC] . DIRECTED Pulse Oximetry [RC] ASDIRECTED Saline Lock Insert [OM.PC] Stat 06/03/20 09:38 PTT,PARTIAL THROMBOPLSTIN TIME [COAG] Stat 06/03/20 09:45 PTT,PARTIAL THROMBOPLSTIN TIME [COAG] Q6H Heparin Sodium/0.45% NaCl [Heparin 25,000 Units in 1/2 NS 500 ML] 500 ml IV TITRATE Nitroglycerin/D5W [Nitroglycerin 25 MG/D5W 250 ML] 25 mg in 250 ml IV TITRATE 06/03/20 15:45 PTT,PARTIAL THROMBOPLSTIN TIME [COAG] Q6H 06/03/20 21:45 PTT,PARTIAL THROMBOPLSTIN TIME [COAG] Q6H 06/04/20 03:45 PTT,PARTIAL THROMBOPLSTIN TIME [COAG] Q6H 06/04/20 09:45 PTT,PARTIAL THROMBOPLSTIN TIME [COAG] Q6H 06/04/20 15:45 PTT,PARTIAL THROMBOPLSTIN TIME [COAG] Q6H 06/04/20 21:45 PTT,PARTIAL THROMBOPLSTIN TIME [COAG] Q6H - Assessment/Plan Last 24 Hours: My Active Orders 06/03/20 08:36 EKG Documentation Completion [RC] STAT Sodium Chloride 0.9% [Saline Flush] 10 ml FLUSH ASDIRECTED PRN Sodium Chloride 0.9% [Saline Flush] 2.5 ml FLUSH ASDIRECTED PRN 06/03/20 08:37 Cardiac Monitoring [RC] . DIRECTED Pulse Oximetry [RC] ASDIRECTED Saline Lock Insert [OM.PC] Stat 06/03/20 09:38 PTT,PARTIAL THROMBOPLSTIN TIME [COAG] Stat 06/03/20 09:45 PTT,PARTIAL THROMBOPLSTIN TIME [COAG] Q6H Heparin Sodium/0.45% NaCl [Heparin 25,000 Units in 1/2 NS 500 ML] 500 ml IV TITRATE Nitroglycerin/D5W [Nitroglycerin 25 MG/D5W 250 ML] 25 mg in 250 ml IV TITRATE 06/03/20 15:45 PTT,PARTIAL THROMBOPLSTIN TIME [COAG] Q6H 06/03/20 21:45 PTT,PARTIAL THROMBOPLSTIN TIME [COAG] Q6H 06/04/20 03:45 PTT,PARTIAL THROMBOPLSTIN TIME [COAG] Q6H 06/04/20 09:45 PTT,PARTIAL THROMBOPLSTIN TIME [COAG] Q6H 06/04/20 15:45 PTT,PARTIAL THROMBOPLSTIN TIME [COAG] Q6H 06/04/20 21:45 PTT,PARTIAL THROMBOPLSTIN TIME [COAG] Q6H
[2020-06-03] MEDS ORDERED: Sodium Chloride 0.9% 2.5 ML Syringe FLUSH PRN (08:36)
[2020-06-03] MEDS ORDERED: Albuterol/Ipratropium 3.0-0.5 MG/3 ML Neb Soln NEB ONE (08:36)
[2020-06-03] MEDS ORDERED: Sodium Chloride 0.9% 10 ML Syringe FLUSH PRN (08:36)
[2020-06-03] MEDS ORDERED: Aspirin 81 MG Tab.Chew PO ONE ×2 (08:36→09:33)
[2020-06-03] MEDS ORDERED: Labetalol 100 MG/20 ML MDV IVPUSH ONE (08:36)
[2020-06-03 09:14] LABS: CARBON DIOXIDE,CO2 28.8 mmol/L (21.0-32.0)
[2020-06-03 09:23] LABS: POTASSIUM,K 3.3 mmol/L (3.5-5.1)
--- NOTE | 2020-06-03 09:34 | CR ---
Indication: Cough Comparison: Single-view chest summer Technique: Single AP view chest Findings: There is hyperinflation and chronic interstitial change. There are increasing interstitial markings likely representing superimposed pulmonary vascular congestion with basilar atelectasis versus scar. There is no dense consolidation, effusion, or pneumothorax. The cardiac silhouette is enlarged. The bony thorax is grossly intact. Impression: Increasing interstitial markings likely representing superimposed pulmonary vascular congestion. Dictated by Prabhjot Rodriguez MD @ Jun 03 2020 9:33AM Signed by Dr. Prabhjot Rodriguez @ Jun 03 2020 9:34AM
[2020-06-03] MEDS ORDERED: Heparin Sodium 5,000 Units/ML Vial IVPUSH ONE ×2 (09:37→09:41)
[2020-06-03] MEDS ORDERED: Heparin Sodium/0.45% NaCl 500 ML ONE (09:43)
[2020-06-03] MEDS ORDERED: Nitroglycerin/D5W 25 MG/250 ML BOTTLE ONE (09:43)
[2020-06-03] MEDS ORDERED: Heparin Sodium 5,000 Units/ML Vial ONE (09:43)
[2020-06-03] MEDS ORDERED: Nitroglycerin/D5W 25 MG/250 ML BOTTLE IV SCH (09:45)
[2020-06-03] MEDS ORDERED: Heparin Sodium/0.45% NaCl 500 ML IV SCH (09:45)
== END 2020-06-03 10:55 | disposition home or self-care (01) ==
LOC: MW.ED 08:05
DX: N17.9 Acute kidney failure, unspecified (principal); I13.0 Hypertensive heart and chronic kidney disease with heart failure and stage 1 through stage 4 chronic kidney disease, or unspecified chronic kidney disease; I50.9 Heart failure, unspecified; N18.9 Chronic kidney disease, unspecified; I25.2 Old myocardial infarction; R79.89 Other specified abnormal findings of blood chemistry
CPT/HCPCS: 36415; 71045; 80053; 80305; 81001; 83735; 83880; 84484; 85025; 85379; 85610; 85730; 93005; 96365; 96368; 96375; 99285; A9270; J1644; J3490; 93010; 99284; J7620-GY

== ENCOUNTER 2020-09-20 11:59 | Emergency (ER) | payer SELFPAY ==
--- NOTE | 2020-09-20 12:23 | EDM.PDOC ---
ED HPI GENERAL MEDICAL PROBLEM - General Chief Complaint: General Stated Complaint: medical clearance Time Seen by Provider: 09/20/20 12:01 - History of Present Illness INITIAL COMMENTS - FREE TEXT/NARRATIVE: 35-year-old male with a history of NSTEMI, CHF presenting for medical clearance for booking. Patient has no complaints no chest pain or shortness of breath no abdominal pain he feels well. He ran out of his medications yesterday and has not had a chance to take any medications today. He does note that he has multiple refills available at his normal pharmacy. However he will be unable to access those while he is in senior care. - Related Data Allergies Allergy/AdvReac Type Severity Reaction Status Date / Time No Known Allergies Allergy Verified 09/20/20 12:13 Home Meds: Home Meds Labetalol HCl [Labetalol] 300 mg PO TID 7 Days #21 tablet 09/20/20 [Rx] Labetalol [Normodyne] 300 mg PO TID 09/20/20 [History] Valsartan 2 tab PO DAILY 09/20/20 [History] Valsartan 320 mg PO DAILY #14 tablet 09/20/20 [Rx] amLODIPine [Norvasc] 10 mg PO DAILY 09/20/20 [History] amLODIPine [Norvasc] 10 mg PO DAILY 7 Days #14 tab 09/20/20 [Rx] atorvaSTATin [Lipitor] 40 mg PO BEDTIME 09/20/20 [History] atorvaSTATin [Lipitor] 40 mg PO BEDTIME 7 Days #7 tab 09/20/20 [Rx] Past Medical History - Past Health History Medical/Surgical History: Denies Medical/Surgical History Other Cardiovascular History: N-STEMI in January 2020. No stents placed. Other Genitourinary History: States he has "kidney problems." - Infectious Disease History Infectious Disease History: Reports: Novel Coronavirus Social & Family History - Family History Family Medical History: No Pertinent Family History - Caffeine Use Caffeine Use: Reports: None ED ROS GENERAL - Review of Systems Review Of Systems: See Below Free Text/Narrative/Comment: General: No fever. Neck: No neck stiffness. Respiratory: No shortness of breath. Cardiac: No chest pain. Gastrointestinal: No nausea, vomiting or abdominal pain. Neurologic: No headache. ED EXAM, GENERAL - Physical Exam Exam: See Below Free Text/Narrative:: General Appearance: No acute distress, appears comfortable Skin: No rash HEENT: Normocephalic/atraumatic, sclera anicteric, mucous membranes moist Neck: Normal range of motion Chest and Lungs: Bilateral breath sounds, clear to auscultation Cardiovascular: Regular rate and rhythm, no murmur Abdomen: Soft, non-tender Musculoskeletal: No edema or tenderness Neurologic: Awake, alert, no obvious deficits, moving all extremities Psychiatric: Appropriate, cooperative Course - Vital Signs Last Recorded V/S: Last Vital Signs Temp 96.4 F L 09/20/20 12:14 Pulse 82 09/20/20 12:14 Resp 18 09/20/20 12:14 BP 164/84 H 09/20/20 12:14 Pulse Ox 98 09/20/20 12:14 Departure - Departure Time of Disposition: :27 Disposition: Home, Self-Care 01 Condition: Good Clinical Impression: Hypertension - Discharge Information *PRESCRIPTION DRUG MONITORING PROGRAM REVIEWED*: Not Applicable *COPY OF PRESCRIPTION DRUG MONITORING REPORT IN PATIENT CLYDE: Not Applicable Prescriptions: Labetalol HCl [Labetalol] 300 mg PO TID 7 Days #21 tablet atorvaSTATin [Lipitor] 40 mg PO BEDTIME 7 Days #7 tab amLODIPine [Norvasc] 10 mg PO DAILY 7 Days #14 tab Valsartan 320 mg PO DAILY #14 tablet Instructions: Managing Your Hypertension Forms: ED Department Discharge Additional Instructions: A prescription for a 1 week supply of your 4 medications [facility] Because of your past cardiac history is important that you maintain a stable medication regimen. The following information is given to patients seen in the emergency department who are being discharged to home. This information is to outline your options for follow-up care. We provide all patients seen in our emergency department with a follow-up referral. The need for follow-up, as well as the timing and circumstances, are variable depending upon the specifics of your emergency department visit. If you don't have a primary care physician on staff, we will provide you with a referral. We always advise you to contact your personal physician following an emergency department visit to inform them of the circumstance of the visit and for follow-up with them and/or the need for any referrals to a consulting specialist. The emergency department will also refer you to a specialist when appropriate. This referral assures that you have the opportunity for follow-up care with a specialist. All of these measure are taken in an effort to provide you with optimal care, which includes your follow-up. Under all circumstances we always encourage you to contact your private physician who remains a resource for coordinating your care. When calling for follow-up care, please make the office aware that this follow-up is from your recent emergency room visit. If for any reason you are refused follow-up, please contact the [facility] Emergency Department at and asked to speak to the emergency department charge nurse. Sepsis Event Note (ED) - Evaluation Sepsis Screening Result: No Definite Risk - Focused Exam Vital Signs: Vital Signs Temp Pulse Resp BP Pulse Ox 09/20/20 12:14 96.4 F L 82 18 164/84 H 98 - Assessment/Plan Assessment:: 35-year-old male no sign of active medical process. Patient is mildly hypertensive but did not take his medications today. Given his past history compliance with his medical regimen is important. I will send [facility] short[facility]term prescription to [facility] so that he has something he can take until he is able to fill his normal medications.
[2020-09-20] MEDS ORDERED: Labetalol 100 MG Tab PO ONE (12:38)
[2020-09-20] MEDS ORDERED: amLODIPine 5 MG Tab PO ONE (12:39)
== END 2020-09-20 13:11 | disposition home or self-care (01) ==
LOC: MW.ED 11:59
DX: I10 Essential (primary) hypertension (principal); I25.2 Old myocardial infarction; Z79.899 Other long term (current) drug therapy
CPT/HCPCS: 99283; A9270

== ENCOUNTER 2021-11-09 07:12 | Emergency (ER) | payer SELFPAY ==
[2021-11-09] MEDS ORDERED: Aspirin 81 MG Tab.Chew PO ONE (07:15)
[2021-11-09] MEDS ORDERED: Nitroglycerin 0.4 MG Tab.SL SL STA (07:29)
[2021-11-09] MEDS ORDERED: Nitroglycerin 0.4 MG Tab.SL ONE (07:30)
[2021-11-09] MEDS ORDERED: Furosemide 40 MG/4 ML VIAL IVPUSH STA (07:32)
[2021-11-09] MEDS ORDERED: Nitroglycerin/D5W 25 MG/250 ML BOTTLE IV SCH (07:45)
[2021-11-09] MEDS ORDERED: Albuterol/Ipratropium 3.0-0.5 MG/3 ML Neb Soln NEB ONE ×2 (08:23→08:48)
[2021-11-09 08:26] LABS: CARBON DIOXIDE,CO2 31.9 mmol/L (21.0-32.0)
[2021-11-09] MEDS ORDERED: cefTRIAXone 1 GM in Sodium Chloride 0.9% 50 ML IV ONE (09:00)
[2021-11-09] MEDS ORDERED: Azithromycin 500 MG in Sodium Chloride 0.9% 250 ML IV ONE (09:01)
[2021-11-09] MEDS ORDERED: Succinylcholine 200 MG/10 ML MDV IV STA (09:30)
[2021-11-09] MEDS ORDERED: Etomidate 2 MG/ML 20 ML SDV IVPUSH STA (09:30)
[2021-11-09] MEDS ORDERED: Propofol 200 MG/20 ML SDV IVPUSH STA ×4 (10:13→11:46)
[2021-11-09] MEDS ORDERED: propofoL 100 ML IV SCH (10:15)
[2021-11-09] MEDS ORDERED: Propofol 200 MG/20 ML SDV ONE (10:55)
[2021-11-09] MEDS ORDERED: fentaNYL/Normal Saline 2,500 MCG in Premix Bag 1 BAG IV STA (11:04)
[2021-11-09] MEDS ORDERED: fentaNYL 50 MCG/ML SDV IVPUSH STA ×2 (11:06→11:46)
[2021-11-09] MEDS ORDERED: fentaNYL 2,500 MCG in Sodium Chloride 0.9% 200 ML IV STA (11:10)
[2021-11-09] MEDS ORDERED: fentaNYL 100 MCG/2 ML SDV ONE (11:32)
== END 2021-11-09 11:55 ==
LOC: MW.ED 07:12
DX: A41.9 Sepsis, unspecified organism (principal); J18.9 Pneumonia, unspecified organism; J96.01 Acute respiratory failure with hypoxia; I11.0 Hypertensive heart disease with heart failure; I50.9 Heart failure, unspecified; I16.1 Hypertensive emergency; I25.2 Old myocardial infarction; Z79.899 Other long term (current) drug therapy; Z86.16 Personal history of COVID-19; Z20.822 Contact with and (suspected) exposure to COVID-19
CPT/HCPCS: 31500; 36415; 36600; 43752; 51702; 71045; 80053; 80305; 81001; 82803; 83605; 83880; 84443; 84484; 85025; 85610; 85730; 87040; 87635; 93005; 94640; 96365; 96366; 96368; 96375; 99291; 99292; A9270; J0330; J0456; J0696; J1940; J2704; J3010; J3490; J7050; 93010; J7620-GY; U0002

== ENCOUNTER 2023-02-10 23:17 | Emergency (ER) | payer SELFPAY ==
[~2023-02-10 23:17] MED LIST: EPINEPHrine 1:10,000 1 MG/10 ML Syringe IVPUSH STA
[2023-02-10] MEDS ORDERED: Amiodarone 150 MG/3 ML SDV IV ONE (23:19)
[2023-02-11] MEDS ORDERED: Amiodarone 150 MG/3 ML SDV IVPUSH ONE (05:00)
== END 2023-02-11 00:34 | disposition expired ==
LOC: MW.ED 23:17
DX: I46.9 Cardiac arrest, cause unspecified (principal); I25.2 Old myocardial infarction; Z86.16 Personal history of COVID-19; Z79.899 Other long term (current) drug therapy
CPT/HCPCS: 36680; 92950; 96374; 99285; J0171; J0282